=== PATIENT | male | born 1990 | race Caucasian/White ===

== ENCOUNTER 2020-11-03 13:19 | Emergency (ER) | payer OTHER ==
[~2020-11-03] VITALS: Ht 175.3 cm; Wt 104.5 kg
[2020-11-03 13:21] VITALS: BP 136/85
== END 2020-11-03 14:25 | disposition left against medical advice (07) ==
LOC: ER 13:19
DX: R05 Cough (principal); Z53.21 Procedure and treatment not carried out due to patient leaving prior to being seen by health care provider

== ENCOUNTER 2023-08-05 14:52 | Emergency (ER) | payer OTHER ==
[~2023-08-05] VITALS: Ht 177.8 cm; Wt 93.2 kg
[2023-08-05 14:53] VITALS: BP 134/95; PULSE 81; RESP 16; TEMP 98.3; O2SAT 97
[2023-08-05] MEDS ORDERED: CEPH-585 PO (17:55)
[2023-08-05] MEDS ORDERED: tetanus & diphtheria toxoid (Td) vaccine 0.5ml IMVAC ONE (18:15)
[2023-08-05] MEDS ORDERED: TETanus/Pertussis (Acell)/Diphther VAC/PF (Tdap-Adult) 0.5ml syringe IMVAC ONE (18:20)
== END 2023-08-05 18:24 | disposition home or self-care (01) ==
LOC: ER 14:52
DX: S61.211A Laceration without foreign body of left index finger without damage to nail, initial encounter (principal); X58.XXXA Exposure to other specified factors, initial encounter; Y93.89 Activity, other specified; Y92.89 Other specified places as the place of occurrence of the external cause; Y99.8 Other external cause status
CPT/HCPCS: 90471; 90715; 99283

== ENCOUNTER 2023-08-14 16:48 | Emergency (ER) | payer OTHER ==
[~2023-08-14 16:48] MED LIST: CEPH-585 PO
--- NOTE | 2023-08-14 17:07 | NUR ---
Arnold Pollack is excused from work from 08/05/23-08/12/23 due to a medical condition treated at [facility]. Please contact the primary care physician with additional questions. Respectfully, Dr. David MD Emergency Medicine [phone]
--- NOTE | 2023-08-14 17:10 | NUR ---
note authorized by Dr. Hernandez
== END 2023-08-14 17:12 | disposition left against medical advice (07) ==
LOC: ER 16:49
DX: Z02.89 Encounter for other administrative examinations (principal); Z53.21 Procedure and treatment not carried out due to patient leaving prior to being seen by health care provider